=== PATIENT | male | born 1995 | race Caucasian/White ===

== ENCOUNTER 2021-09-15 14:53 | Outpatient (REF) | payer BC, SELFPAY ==
[2021-09-15 15:50] LABS: Bilirubin Negative (Negative); Blood Trace-intact (Negative); Clarity Clear (Clear); Glucose Negative (Negative); Ketones Negative (Negative); Leukocyte Esterase Negative (Negative); Nitrite Negative (Negative); Specific Gravity >= 1.030 (1.005-1.025); Urobilinogen 0.2 EU/dL (Up TO 0.2)
[2021-09-15 19:21] LABS: Bacteria Rare HPF (Negative); Epithelial Cells Few HPF (Negative); WBC 0-2 HPF (0-5)
[2021-09-15 19:22] LABS: C & S Indicated? No; Casts Negative LPF (Negative); Crystals Negative HPF (Negative); Mucus Negative (Negative)
[2021-09-16 13:19] LABS: COVID-19 RT-PCR UVMMC Result Negative (Negative)
== END 2021-09-15 14:54 | disposition home or self-care (01) ==
LOC: LBN 14:53
PROVIDERS: PCP Student in an Organized Health Care Education/Training Program; Visit Provider Physician Assistant
DX: J02.9 Acute pharyngitis, unspecified (principal); N39.0 Urinary tract infection, site not specified; Z20.822 Contact with and (suspected) exposure to COVID-19
CPT/HCPCS: U0003; 81003; 81015

== ENCOUNTER 2021-09-25 06:29 | Outpatient (CLI) | payer BC, SELFPAY ==
[2021-09-25 06:44] LABS: Source Nasal/Nares
[2021-09-25 07:24] LABS: COVID-19 PCR Negative (Negative)
== END 2021-09-25 06:30 | disposition home or self-care (01) ==
LOC: LBO 06:32
PROVIDERS: PCP Student in an Organized Health Care Education/Training Program; Visit Provider Family Medicine
DX: Z20.822 Contact with and (suspected) exposure to COVID-19 (principal)
CPT/HCPCS: 87635

== ENCOUNTER 2022-04-22 01:30 | Outpatient (CLI) | payer BC, SELFPAY ==
[2022-04-22 09:50] LABS: ALT 51 U/L (16-63); AST 23 U/L (15-37); Albumin 4.1 g/dL (3.4-5.0); Alkaline Phosphatase 51 U/L (46-116); Anion Gap 7.3 mmol/L (3-11); BUN 18 mg/dL (7-18); Bilirubin, Total 0.3 mg/dL (0.2-1.0); CO2 28.7 mmol/L (21.0-32.0); CREATININE 1.3 mg/dL (0.70-1.30); Calcium 8.9 mg/dL (8.5-10.1); Calculated LDL 102 mg/dL (<100); Chloride 104 mmol/L (98-107); Cholesterol 158 mg/dL (<200); Glucose 112 mg/dL (74-106); HDL Cholesterol 30 mg/dL (40-60); Potassium 4.1 mmol/L (3.5-5.1); Sodium 140 mmol/L (136-145); TSH (W/Ref FT4) 1.31 uIU/mL (0.36-3.74); Total Protein 8.2 g/dL (6.4-8.2); Triglyceride 133 mg/dL (<150)
== END 2022-04-22 01:31 | disposition home or self-care (01) ==
LOC: LBO 01:30
PROVIDERS: PCP Student in an Organized Health Care Education/Training Program; Visit Provider Student in an Organized Health Care Education/Training Program
DX: E86.0 Dehydration (principal); Z79.1 Long term (current) use of non-steroidal anti-inflammatories (NSAID); Z13.220 Encounter for screening for lipoid disorders; F32.9 Major depressive disorder, single episode, unspecified; R53.83 Other fatigue
CPT/HCPCS: 36415; 80053; 80061; 84443

== ENCOUNTER 2022-08-10 19:56 | Outpatient (REF) | payer BC, SELFPAY | END 2022-08-10 19:57 | disposition home or self-care (01) | LOC: LBN 19:56 | PROVIDERS: PCP Student in an Organized Health Care Education/Training Program; Visit Provider Nurse Practitioner Family | DX: L03.032 Cellulitis of left toe; L98.8 Other specified disorders of the skin and subcutaneous tissue; L60.0 Ingrowing nail | CPT/HCPCS: 87077; 87070; 87186; 87205 ==